=== PATIENT | male | born 1945 | race Hispanic/Latino ===

== ENCOUNTER 2017-06-04 11:42 | Emergency (ER) | payer MEDICARE ==
[2017-06-04 12:40] LABS: Basophils % (Auto) 2.8 % (0.0-1.8); Eosinophils % (Auto) 2.8 % (0.0-4.3); Hematocrit 36.4 % (35.5-45.6); Hemoglobin 12.8 gm/dl (11.8-15.2); Mean Corpuscular HGB Conc 35 % (32-34); Mean Corpuscular Hemoglobin 32 pg (28-32); Mean Corpuscular Volume 91 fl (84-94); Platelet Count 200 K/mm3 (140-440); Red Cell Distribution Width 12.5 % (13.2-15.2); White Blood Count 6.1 K/mm3 (4.5-11.0)
[2017-06-04 12:48] LABS: Anion Gap 17 mmol/L; BUN/Creatinine Ratio 16.25; Blood Urea Nitrogen 13 mg/dL (9-20); Calcium 9.2 mg/dL (8.4-10.2); Carbon Dioxide 27 mmol/L (22-30); Chloride 94.1 mmol/L (98-107); Glucose 192 mg/dL (75-100); Potassium 4.2 mmol/L (3.6-5.0); Sodium 134 mmol/L (137-145)
--- NOTE | 2017-06-04 13:56 | XRay Report ---
CHEST XRAY, 2 VIEWS: History: Shortness of breath. Findings: There is mild diffuse interstitial coarsening. The lungs are hyperexpanded but clear. No infiltrate, pleural fluid or pneumothorax is detected. The cardiac silhouette and pulmonary vasculature are within normal limits for technique. The bony thorax is unremarkable. IMPRESSION: Changes consistent with COPD. No acute cardiopulmonary process.
[2017-06-04] MEDS ORDERED: DUONEB *Not for PRN Use IH ONE (16:17)
[2017-06-04] MEDS ORDERED: DELTASONE PO ONE (16:19)
--- NOTE | 2017-06-04 16:35 | Emergency Department Report ---
ED Asthma HPI - General Chief Complaint: Upper Respiratory Infection Stated Complaint: CONGESTION/YELLOW PHELM/ Time Seen by Provider: 06/04/17 16:10 Source: patient Mode of arrival: Ambulatory Limitations: No Limitations - History of Present Illness Initial Comments: 71-year-old male here with complaints of shortness of breath and cough. Patient recently on a course of antibiotics without resolution of symptoms. He has seen his primary care and started on azithromycin. He describes some mild shortness of breath and continued cough with thick yellowish sputum. Denies fevers chills nausea vomiting or chest pain. MD Complaint: shortness of breath -: Gradual Severity: moderate Context: none known Associated Symptoms: none, productive cough Treatments Prior to Arrival: other (none) - Related Data Home Medications Medication Instructions Recorded Confirmed Last Taken Carvedilol [Coreg] 1 mg PO BID 02/08/14 05/06/15 05/05/15 Digoxin [Lanoxin] 1 mg PO QDAY 02/08/14 05/06/15 05/05/15 Insulin Glargine,Hum.rec.anlog 30 units SUB-Q QHS 02/08/14 05/06/15 05/05/15 [Lantus] Insulin Regular, Human [HumuLIN R] 3 units SUB-Q TID 02/08/14 05/06/15 05/05/15 LORazepam [Ativan] 1 mg PO BID 02/08/14 05/06/15 05/05/15 Lisinopril [Zestril TAB] 1 mg PO QDAY 02/08/14 05/06/15 05/05/15 Previous Rx's Medication Instructions Recorded Last Taken Type Levofloxacin [Levaquin] 250 mg PO QDAY #10 tablet 05/06/15 Unknown Rx ALBUTEROL Inhaler [ProAir HFA 2 puff IH QID PRN #1 inhalation 06/04/17 Unknown Rx Inhaler] predniSONE [Deltasone] 20 mg PO QDAY #8 tab 06/04/17 Unknown Rx Allergies Allergy/AdvReac Type Severity Reaction Status Date / Time Sulfa (Sulfonamide Allergy Rash Verified 06/04/17 11:56 Antibiotics) ED Review of Systems ROS: Stated complaint: CONGESTION/YELLOW PHELM/ Other details as noted in HPI Comment: All other systems reviewed and negative Constitutional: denies: chills, fever Eyes: denies: eye pain, eye discharge, vision change ENT: denies: ear pain, throat pain Respiratory: denies: cough, shortness of breath, wheezing Cardiovascular: denies: chest pain, palpitations Endocrine: no symptoms reported Gastrointestinal: denies: abdominal pain, nausea, diarrhea Genitourinary: denies: urgency, dysuria Musculoskeletal: denies: back pain, joint swelling, arthralgia Skin: denies: rash, lesions Neurological: denies: headache, weakness, paresthesias Psychiatric: denies: anxiety, depression Hematological/Lymphatic: denies: easy bleeding, easy bruising ED Past Medical Hx - Past Medical History Hx Hypertension: No (pt states he do not have) Hx Heart Attack/AMI: Yes (12/17/1013) Hx Congestive Heart Failure: No Hx Diabetes: Yes Hx Deep Vein Thrombosis: No Hx Pulmonary Embolism: No Hx Renal Disease: No Hx Arthritis: No Hx Seizures: No Hx Asthma: No Hx COPD: No Additional medical history: Stents x 2 - Surgical History Hx Coronary Stent: Yes (Removed 12/2014) Hx Pacemaker: No Hx Appendectomy: No Additional Surgical History: CABG; Removed stents 12/2013 - Family History Family history: asthma - Social History Smoking Status: Never Smoker Substance Use Type: None - Medications Home Medications: Home Medications Medication Instructions Recorded Confirmed Last Taken Type Carvedilol [Coreg] 1 mg PO BID 02/08/14 05/06/15 05/05/15 History Digoxin [Lanoxin] 1 mg PO QDAY 02/08/14 05/06/15 05/05/15 History Insulin Glargine,Hum.rec.anlog 30 units SUB-Q QHS 02/08/14 05/06/15 05/05/15 History [Lantus] Insulin Regular, Human [HumuLIN R] 3 units SUB-Q TID 02/08/14 05/06/15 05/05/15 History LORazepam [Ativan] 1 mg PO BID 02/08/14 05/06/15 05/05/15 History Lisinopril [Zestril TAB] 1 mg PO QDAY 02/08/14 05/06/15 05/05/15 History Levofloxacin [Levaquin] 250 mg PO QDAY #10 tablet 05/06/15 Unknown Rx ALBUTEROL Inhaler [ProAir HFA 2 puff IH QID PRN #1 inhalation 06/04/17 Unknown Rx Inhaler] predniSONE [Deltasone] 20 mg PO QDAY #8 tab 06/04/17 Unknown Rx ED Physical Exam - General Limitations: No Limitations General appearance: alert, in no apparent distress - Head Head exam: Present: atraumatic, normocephalic - Eye Eye exam: Present: normal appearance, PERRL - ENT ENT exam: Present: normal exam, mucous membranes moist - Neck Neck exam: Present: normal inspection - Respiratory Respiratory exam: Present: wheezes. Absent: respiratory distress - Cardiovascular Cardiovascular Exam: Present: regular rate, normal rhythm. Absent: systolic murmur, diastolic murmur, rubs, gallop - GI/Abdominal GI/Abdominal exam: Present: soft, normal bowel sounds - Rectal Rectal exam: Present: deferred - Extremities Exam Extremities exam: Present: normal inspection - Back Exam Back exam: Present: normal inspection. Absent: tenderness - Neurological Exam Neurological exam: Present: alert, oriented X3 - Psychiatric Psychiatric exam: Present: normal affect, normal mood - Skin Skin exam: Present: warm, dry, intact, normal color. Absent: rash ED Course Vital Signs 06/04/17 06/04/17 11:56 15:59 Temperature 98.7 F 97.7 F Pulse Rate 74 75 Respiratory 18 18 Rate Blood Pressure 145/77 Blood Pressure 138/66 [Left] O2 Sat by Pulse 100 98 Oximetry ED Medical Decision Making - Lab Data Result diagrams: 06/04/17 12:13 06/04/17 12:13 Abnormal Lab Results 06/04/17 06/04/17 12:13 12:13 WBC 6.1 RBC 4.00 Hgb 12.8 Hct 36.4 MCV 91 MCH 32 MCHC 35 H RDW 12.5 L Plt Count 200 Lymph % (Auto) 18.2 Polk % (Auto) 11.1 H Eos % (Auto) 2.8 Baso % (Auto) 2.8 H Lymph # 1.1 L Polk # 0.7 Eos # 0.2 Baso # 0.2 H Seg Neutrophils % 65.1 Seg Neutrophils # 4.0 Sodium 134 L Potassium 4.2 Chloride 94.1 L Carbon Dioxide 27 Anion Gap 17 BUN 13 Creatinine 0.8 Estimated GFR > 60 BUN/Creatinine Ratio 16.25 Glucose 192 H Calcium 9.2 - EKG Data -: EKG Interpreted by Tx - EKG Data 06/04/17 16:38 EKG sinus rate of 72 normal axis normal intervals poor R-wave progression no ST- T wave changes - Radiology Data Radiology results: report reviewed, image reviewed - Medical Decision Making Patient is a 71-year-old nonsmoker here with 1 month worth of increasing shortness of breath. Recent and course of antibiotics without resolution of symptoms. He is wheezing bilaterally. He's never been treated for asthma or COPD. Plan to treat with nebs and steroids and will discharge him with inhalers and steroids. Patient improved after steroids and nebulized treatments. Plan to discharge home with albuterol and short course of steroids. Portions of this chart were dictated with dictation software. There may be dictation errors contained within this note. Critical care attestation.: If time is entered above; I have spent that time in minutes in the direct care of this critically ill patient, excluding procedure time. ED Disposition Clinical Impression: Asthma Disposition: DC-01 TO HOME OR SELFCARE Is pt being admited?: No Condition: Stable Instructions: Asthma (ED) Prescriptions: ALBUTEROL Inhaler [ProAir HFA Inhaler] 2 puff IH QID PRN #1 inhalation PRN Reason: Shortness Of Breath predniSONE [Deltasone] 20 mg PO QDAY #8 tab Referrals: TONE MARTINEZ MD [Primary Care Provider] - 3-5 Days
[2017-06-04 18:16] VITALS: BP 130/70
== END 2017-06-04 18:20 | disposition home or self-care (01) ==
LOC: ED 11:42
DX: J45.909 Unspecified asthma, uncomplicated (principal); I25.2 Old myocardial infarction; E11.9 Type 2 diabetes mellitus without complications; Z79.4 Long term (current) use of insulin; Z88.2 Allergy status to sulfonamides
CPT/HCPCS: 36415; 71020; 80048; 85025; 87040; 93005; 93010; 94640; 99284; J7512

== ENCOUNTER 2018-11-15 13:41 | Emergency (ER) | payer MEDICARE ==
[2018-11-15 14:33] LABS: Basophils % (Auto) 0.5 % (0.0-1.8); Eosinophils # (Auto) 0.1 K/mm3 (0.0-0.4); Eosinophils % (Auto) 0.8 % (0.0-4.3); Hematocrit 39.2 % (35.5-45.6); Hemoglobin 13.6 gm/dl (11.8-15.2); Lymphocytes # (Auto) 0.6 K/mm3 (1.2-5.4); Lymphocytes % (Auto) 8.6 % (13.4-35.0); Mean Corpuscular HGB Conc 35 % (32-34); Mean Corpuscular Volume 92 fl (84-94); Monocytes # (Auto) 0.8 K/mm3 (0.0-0.8); Monocytes % (Auto) 11.9 % (0.0-7.3); Platelet Count 189 K/mm3 (140-440); Red Blood Count 4.25 M/mm3 (3.65-5.03); Red Cell Distribution Width 13.1 % (13.2-15.2)
[2018-11-15 14:55] LABS: BUN/Creatinine Ratio 14; Blood Urea Nitrogen 13 mg/dL (9-20); Calcium 9.1 mg/dL (8.4-10.2); Hemolysis Index 3
--- NOTE | 2018-11-15 15:15 | XRay Report ---
FINAL REPORT EXAM: XR CHEST ROUTINE 2V HISTORY: Shortness of breath TECHNIQUE: Frontal and lateral views of the chest. PRIORS: None currently available. FINDINGS: Cardiac silhouette is within normal limits. Surgical artifacts are intact. There is no effusion. There is no pneumothorax. There is no consolidation. There are no suspicious osseous lesions. IMPRESSION: No acute cardiopulmonary findings.
[2018-11-15] MEDS ORDERED: TESSALON PERLES PO ONE (17:16)
[2018-11-15] MEDS ORDERED: TYLENOL PO ONE (17:16)
--- NOTE | 2018-11-15 17:18 | Emergency Department Report ---
- General Chief Complaint: Upper Respiratory Infection Stated Complaint: VIRUS Time Seen by Provider: 11/15/18 16:56 Source: patient Mode of arrival: Ambulatory Limitations: No Limitations - History of Present Illness Initial Comments: 73-year-old male with a past medical history of CAD with stents and CABG, hypertension, diabetes, and arthritis presents to Hospital complaints of cough and cold symptoms 1 week. Patient his rattling in his chest with coughing but is unable to clear his secretions. Complains of moderate chest pain with cough episodes. Mild nausea without vomiting. Patient felt feverish today and presents to the ER with a low-grade temp. He tried TheraFlu without improvement. He did not receive a flu shot this year. Patient denies wheezing or shortness of breath. - Related Data Home Medications Medication Instructions Recorded Confirmed Last Taken Carvedilol [Coreg] 1 mg PO BID 02/08/14 05/06/15 05/05/15 Digoxin [Lanoxin] 1 mg PO QDAY 02/08/14 05/06/15 05/05/15 Insulin Glargine,Hum.rec.anlog 30 units SUB-Q QHS 02/08/14 05/06/15 05/05/15 [Lantus] Insulin Regular, Human [HumuLIN R] 3 units SUB-Q TID 02/08/14 05/06/15 05/05/15 LORazepam [Ativan] 1 mg PO BID 02/08/14 05/06/15 05/05/15 Lisinopril [Zestril TAB] 1 mg PO QDAY 02/08/14 05/06/15 05/05/15 Previous Rx's Medication Instructions Recorded Last Taken Type levoFLOXacin [Levaquin] 250 mg PO QDAY #10 tablet 05/06/15 Unknown Rx ALBUTEROL Inhaler (OR & NICU) 2 puff IH QID PRN #1 inhalation 06/04/17 Unknown Rx [ProAir HFA Inhaler] predniSONE [Deltasone] 20 mg PO QDAY #8 tab 06/04/17 Unknown Rx Azithromycin [Zithromax Z-TESFAYE] 1 dose PO DAILY 5 Days tab 11/15/18 Unknown Rx guaiFENesin/DEXTROMETHORPHAN 1 tab PO BID PRN #20 tab 11/15/18 Unknown Rx [Mucinex DM ER 600-30 mg TAB] traMADol [Ultram 50 MG tab] 50 mg PO Q6HR PRN #20 tablet 11/15/18 Unknown Rx Allergies Allergy/AdvReac Type Severity Reaction Status Date / Time Sulfa (Sulfonamide Allergy Rash Verified 06/04/17 11:56 Antibiotics) ED Review of Systems ROS: Stated complaint: VIRUS Other details as noted in HPI Comment: All other systems reviewed and negative ED Past Medical Hx - Past Medical History Previous Medical History?: Yes Hx Hypertension: No (pt states he do not have) Hx Heart Attack/AMI: Yes (12/17/1013) Hx Congestive Heart Failure: No Hx Diabetes: Yes Hx Deep Vein Thrombosis: No Hx Pulmonary Embolism: No Hx Renal Disease: No Hx Arthritis: No Hx Seizures: No Hx Asthma: No Hx COPD: No Additional medical history: Stents x 2 - Surgical History Past Surgical History?: Yes Hx Coronary Stent: Yes (Removed 12/2014) Hx Pacemaker: No Hx Appendectomy: No Additional Surgical History: CABG; Removed stents 12/2013 - Social History Smoking Status: Former Smoker Substance Use Type: Alcohol, Marijuana, Prescribed - Medications Home Medications: Home Medications Medication Instructions Recorded Confirmed Last Taken Type Carvedilol [Coreg] 1 mg PO BID 02/08/14 05/06/15 05/05/15 History Digoxin [Lanoxin] 1 mg PO QDAY 02/08/14 05/06/15 05/05/15 History Insulin Glargine,Hum.rec.anlog 30 units SUB-Q QHS 02/08/14 05/06/15 05/05/15 History [Lantus] Insulin Regular, Human [HumuLIN R] 3 units SUB-Q TID 02/08/14 05/06/15 05/05/15 History LORazepam [Ativan] 1 mg PO BID 02/08/14 05/06/15 05/05/15 History Lisinopril [Zestril TAB] 1 mg PO QDAY 02/08/14 05/06/15 05/05/15 History levoFLOXacin [Levaquin] 250 mg PO QDAY #10 tablet 05/06/15 Unknown Rx ALBUTEROL Inhaler (OR & NICU) 2 puff IH QID PRN #1 inhalation 06/04/17 Unknown Rx [ProAir HFA Inhaler] predniSONE [Deltasone] 20 mg PO QDAY #8 tab 06/04/17 Unknown Rx Azithromycin [Zithromax Z-TESFAYE] 1 dose PO DAILY 5 Days tab 11/15/18 Unknown Rx guaiFENesin/DEXTROMETHORPHAN 1 tab PO BID PRN #20 tab 11/15/18 Unknown Rx [Mucinex DM ER 600-30 mg TAB] traMADol [Ultram 50 MG tab] 50 mg PO Q6HR PRN #20 tablet 11/15/18 Unknown Rx ED Physical Exam - General Limitations: No Limitations - Other Other exam information: General: No limitations, patient is alert in no acute distress Head exam: Atraumatic, normocephalic Eyes exam: Normal appearance, pupils equal reactive to light, extraocular movements intact ENT: Moist mucous membrane Neck exam: Normal inspection, full range of motion, no meningismus nontender Respiratory exam: Clear to auscultation bilateral, no wheezes, rales, crackles Cardiovascular: Normal rate and rhythm, normal heart sounds Abdomen: Soft, nondistended, and nontender, with normal bowel sounds, no rebound, or guarding Extremity: Full range of motion normal inspection no deformity Back: Normal Inspection, full range of motion, no tenderness Neurologic: Alert, oriented x3, cranial nerves intact, no motor or sensory deficit Psychiatric: normal affect, normal mood Skin: Warm, dry, intact ED Course Vital Signs 11/15/18 14:02 Temperature 100.7 F H Pulse Rate 94 H Respiratory 18 Rate Blood Pressure 140/51 O2 Sat by Pulse 95 Oximetry ED Medical Decision Making - Lab Data Result diagrams: 11/15/18 14:20 11/15/18 14:20 Lab Results 11/15/18 11/15/18 Range/Units 14:20 14:20 WBC 6.5 (4.5-11.0) K/mm3 RBC 4.25 (3.65-5.03) M/mm3 Hgb 13.6 (11.8-15.2) gm/dl Hct 39.2 (35.5-45.6) % MCV 92 (84-94) fl MCH 32 (28-32) pg MCHC 35 H (32-34) % RDW 13.1 L (13.2-15.2) % Plt Count 189 (140-440) K/mm3 Lymph % (Auto) 8.6 L (13.4-35.0) % Coleman % (Auto) 11.9 H (0.0-7.3) % Eos % (Auto) 0.8 (0.0-4.3) % Baso % (Auto) 0.5 (0.0-1.8) % Lymph # 0.6 L (1.2-5.4) K/mm3 Coleman # 0.8 (0.0-0.8) K/mm3 Eos # 0.1 (0.0-0.4) K/mm3 Baso # 0.0 (0.0-0.1) K/mm3 Seg Neutrophils % 78.2 H (40.0-70.0) % Seg Neutrophils # 5.1 (1.8-7.7) K/mm3 Sodium 132 L (137-145) mmol/L Potassium 4.4 (3.6-5.0) mmol/L Chloride 93.3 L (98-107) mmol/L Carbon Dioxide 24 (22-30) mmol/L Anion Gap 19 mmol/L BUN 13 (9-20) mg/dL Creatinine 0.9 (0.8-1.5) mg/dL Estimated GFR > 60 ml/min BUN/Creatinine Ratio 14 % Glucose 267 H (75-100) mg/dL Calcium 9.1 (8.4-10.2) mg/dL Troponin T < 0.010 (0.00-0.029) ng/mL - EKG Data -: EKG Interpreted by Ut EKG shows normal: sinus rhythm, axis (qrs 63), QRS complexes (qrsd 89), ST-T waves (lat and inf t wave inv) Rate: normal (93) - EKG Data When compared to previous EKG there are: no significant change (patient has had inverted T waves and flattened T waves on previous EKGs) - Radiology Data Radiology results: report reviewed FINAL REPORT EXAM: XR CHEST ROUTINE 2V HISTORY: Shortness of breath TECHNIQUE: Frontal and lateral views of the chest. PRIORS: None currently available. FINDINGS: Cardiac silhouette is within normal limits. Surgical artifacts are intact. There is no effusion. There is no pneumothorax. There is no consolidation. There are no suspicious osseous lesions. IMPRESSION: No acute cardiopulmonary findings. - Medical Decision Making Patient treated in the ED with Tylenol and Tessalon pearls. No infiltrate identified. Cardiac enzyme was sent with negative first cardiac enzyme and patient denies chest pain or shortness of breath other than chest pain with coug bg. Patient was treated with a Z-Tesfaye and symptomatic treatment for bronchitis versus viral infection/URI - Differential Diagnosis bronchitis, pneumonia, viral syndrome, influenza Critical Care Time: No Critical care attestation.: If time is entered above; I have spent that time in minutes in the direct care of this critically ill patient, excluding procedure time. ED Disposition Clinical Impression: Acute bronchitis Disposition: TO HOME OR SELFCARE Is pt being admited?: No Does the pt Need Aspirin: No Condition: Stable Instructions: Acute Bronchitis (ED) Additional Instructions: Take the medication as prescribed. Follow up with your doctor. Return if symptoms worsen as indicated by your discharge instructions Prescriptions: Azithromycin [Zithromax Z-TESFAYE] 1 dose PO DAILY 5 Days tab guaiFENesin/DEXTROMETHORPHAN [Mucinex DM ER 600-30 mg TAB] 1 tab PO BID PRN #20 tab PRN Reason: Cough traMADol [Ultram 50 MG tab] 50 mg PO Q6HR PRN #20 tablet PRN Reason: Pain Referrals: your, doctor [Other] - 3-5 Days Time of Disposition: 17:24
[2018-11-15 18:22] VITALS: BP 138/86
== END 2018-11-15 18:22 | disposition home or self-care (01) ==
LOC: ED 13:41
DX: J20.9 Acute bronchitis, unspecified (principal); I25.2 Old myocardial infarction; E11.9 Type 2 diabetes mellitus without complications; F12.10 Cannabis abuse, uncomplicated; Z95.1 Presence of aortocoronary bypass graft; Z79.899 Other long term (current) drug therapy; Z88.2 Allergy status to sulfonamides
CPT/HCPCS: 36415; 71046; 80048; 84484; 85025; 87040; 93005; 93010